=== PATIENT | male | born 1970 | race African-American/Black ===

== ENCOUNTER 2016-06-26 14:13 | Emergency (ER) | payer OTHER ==
[~2016-06-26] VITALS: Ht 180.3 cm; Wt 99.8 kg
--- NOTE | 2016-06-26 15:11 | ED GI/GU/ABDOMINAL COMPLAINT ---
History of Present Illness General Chief Complaint: Male Genitourinary Problems Stated Complaint: BURNING WITH URINATION, ?STD Source: patient Exam Limitations: no limitations Vital Signs & Intake/Output Vital Signs & Intake/Output Vital Signs Date Time Temp Pulse Resp B/P Pulse O2 O2 Flow FiO2 Ox Delivery Rate 06/26 1602 73 18 133/86 96 06/26 1425 97.4 87 20 135/81 98 Room Air Allergies Coded Allergies: No Known Allergies (06/26/16) Triage Note: PT C/O BURNING WITH URINATION TODAY. PT STATES HE IS HAVING PENILE DISCHARGE Triage Nurses Notes Reviewed? yes Onset: Abrupt Duration: constant Timing: single episode today Quality/Severity: burning, moderate Severity Numbers: 5 Location: urethral Radiation: no radiation Activities at Onset: none HPI: Patient is a 46-year-old male who presents emergency in stating that 2 days ago he had unprotected sexual intercourse with a female and then today patient has described penile burning sensation upon urinating and white milky purulent discharge from his urethra. Denies any fever chills abdominal pain nausea vomiting testicular pain or swelling or skin vesicular rash. Past History Travel History Traveled to [place] past 21 day No Medical History Any Pertinent Medical History? none Surgical History Surgical History: non-contributory Psychosocial History What is your primary language Slovenian Tobacco Use: Never used ETOH Use: occasional use Illicit Drug Use: denies illicit drug use Family History Hx Contributory? No Review of Systems Review of Systems Constitutional: Reports: no symptoms. EENTM: Reports: no symptoms. Respiratory: Reports: no symptoms. Cardiovascular: Reports: no symptoms. GI: Reports: no symptoms. Genitourinary: Reports: see HPI, discharge, pain. Musculoskeletal: Reports: no symptoms. Skin: Reports: no symptoms. Neurological/Psychological: Reports: no symptoms. Hematologic/Endocrine: Reports: no symptoms. Immunologic/Allergic: Reports: no symptoms. All Other Systems: Reviewed and Negative Physical Exam Physical Exam General Appearance: no apparent distress, alert Gastrointestinal: normal bowel sounds, soft, non-tender Male Genitals: normal genitalia, NO PURULENT DISCHARGE PENILE AND SCROTAL REGION UNREMARKABLE NONTENDER NO VESICLES NOTED cREMASTER REFLEX INTACT NONTENDER TESTICLES NO SWELLING Comments: Well-developed well-nourished person in no acute distress HEENT: Normal EENT exam, Neck: Supple, no lymphadenopathy, normal range of motion without pain or tenderness Back: Nontender, no CVA tenderness. Cardiovascular: Regular rate and rhythms no murmurs rubs or gallops, normal JVP Respiratory: Chest nontender. No respiratory distress.breath sounds clear to auscultation bilaterally Abdomen: Soft, nontender nondistended, no appreciable organomegaly. Normal bowel sounds. No ascites Extremity: No edema, no calf tenderness to palpation, normal and equal pulses. Neuro: Alert oriented x3, motor sensory normal, Skin: No appreciable rash on exposed skin, skin is warm and dry. Psych: Mood and affect is normal, memory and judgment is normal. Core Measures ACS in differential dx? No Severe Sepsis Present: No Septic Shock Present: No Progress Differential Diagnosis: AAA, AMI, appendicitis, biliary colic, bowel obstruction , colon cancer, cholecystitis, diverticulitis, epididymitis, gastritis, hepatitis, hernia, hemorrhoids, ischemic bowel, inflamm bowel dis, orchitis, pancreatitis, prostatitis, peptic ulcer, PUD/GERD, perforated viscous, pyelonephritis, SBO, STD, testicular torsion, ureterolithiasis, urinary retention, urethritis, UTI/pyelo Plan of Care: Orders Procedure Date/time Status CHLAMYDIA-GC DNA PROBE 06/26 1417 Active URINALYSIS 06/26 141 Complete Laboratory Tests 06/26/16 1518: Urine Color YEL, Urine Clarity CLEAR, Urine pH 7.0, Ur Specific [place] 1.020, Urine Protein TRACE H, Urine Ketones TRACE H, Urine Nitrite POS H, Urine Bilirubin NEG, Urine Urobilinogen 0.2, Ur Leukocyte Esterase TRACE H, Ur Microscopic SEDIMENT EXAMINED, Urine RBC 10-15 H, Urine WBC RARE, Ur Epithelial Cells FEW, Urine Bacteria FEW H, Urine Hemoglobin NEG, Urine Glucose NEG Microbiology 06/26 1518 URINE ROUT: GC DNA Probe - RECD 06/26 1518 URINE ROUT: Chlamydia DNA Probe (ABEL) - RECD Patient currently is in no apparent distress nontender abdomen no testicular pain or swelling. Patient will be treated prophylactically for gonorrhea and chlamydia. This was administered in the emergency room. he was strongly advised to follow-up with culture results and to instruct the partner to be treated for similar symptoms. He was also instructed on safe sex practices (NAHUM ARREOLA,LEATHA) Initial ED EKG: none Departure Departure Disposition: HOME OR SELF CARE Condition: Stable Clinical Impression Primary Impression: Dysuria Secondary Impressions: Sexually transmitted disease Referrals: BECCA FLORES MD (PCP/Family) Additional Instructions: As discussed you have received Rocephin and azithromycin in the emergency room for your treatment. Please do not PARTICIPATE IN sexual activities for approximately 10 days and in the future use prophylactic condomS Please let your partner KNOW about the symptoms that he been having and have them be treated and call the emergency room in 2 days for results of the tests. If symptoms worsen return to emergency room. Departure Forms: Customer Survey General Discharge Information
[2016-06-26 16:02] VITALS: BP 133/86
== END 2016-06-26 16:05 ==
LOC: ERH 14:13
DX: R30.0 Dysuria (principal); A64 Unspecified sexually transmitted disease
CPT/HCPCS: 81001; 87491; 87591; 96372; J0696